=== PATIENT | male | born 1955 | race Caucasian/White ===

== ENCOUNTER 2024-02-06 16:46 | Emergency (ER) | payer OTHER ==
[2024-02-06 17:03] VITALS: PULSE 89; RESP 17; TEMP 97.8; O2SAT 99
[2024-02-06 17:04] VITALS: BP 150/91
--- NOTE | 2024-02-06 17:14 | ERPHSYRPT ---
- History of Present Illness Time Seen by Provider: 02/06/24 17:10 Patient Subjective Stated Complaint: C/O pain to right hand and wrist after a fall at work on Wednesday. Triage Nursing Assessment: Patient ambulated back to ER without difficulties. Right hand is slightly swollen. Did not range due to fear of potentially exacerbating any injuries. No bruising present. No skin alterations present. Physician History: C/O pain to right hand and wrist after a fall at work on Wednesday. Occurred: last week Method of Injury: fell Quality: constant Severity of Pain-Max: mild Severity of Pain-Current: mild Extremities Pain Location: wrist: right Modifying Factors: Improves With: nothing Associated Symptoms: none Allergies/Adverse Reactions: No Known Drug Allergies Allergy (Verified 02/06/24 16:52) Home Medications: cephALEXin [Cephalexin] 1 cap PO BID 02/06/24 [History] Hx Tetanus, Diphtheria Vaccination/Date Given: Yes Hx Influenza Vaccination/Date Given: No Immunizations Up to Date: Yes Travel Risk - International Travel Have you traveled outside of the country in past 3 weeks: No - Emerging Infectious Disease Are you exhibiting symptoms associated with any current EIDs: No - Review of Systems Constitutional: No Symptoms Eyes: No Symptoms Ears, Nose, & Throat: No Symptoms Respiratory: No Symptoms Cardiac: No Symptoms Abdominal/Gastrointestinal: No Symptoms Genitourinary Symptoms: No Symptoms Musculoskeletal: Fall, Joint Pain, Joint Swelling (right wrist) Skin: No Symptoms Neurological: No Symptoms Psychological: No Symptoms - Past Medical History Pertinent Past Medical History: No - Past Surgical History Past Surgical History: Yes Gastrointestinal: Hernia Repair Male Surgical History: Vasectomy - Social History Smoking Status: Never smoker Exposure to second hand smoke: No Drug Use: none - Nursing Vital Signs Nursing Vital Signs: Initial Vital Signs Blood Pressure 151/95 02/06/24 16:50 Pain Scale Pain Intensity 7 - Physical Exam General Appearance: alert Eyes, Ears, Nose, Throat Exam: moist mucous membranes Neck Exam: non-tender, supple Cardiovascular/Respiratory Exam: chest non-tender, normal breath sounds, regular rate/rhythm, no respiratory distress Abdominal Exam: non-tender, No guarding Back Exam: normal inspection, No vertebral tenderness Elbow/Forearm Exam: normal inspection, non-tender Wrist Exam: deformity, limited ROM, soft tissue tenderness Hand Exam: normal inspection Neuro/Tendon Exam: normal sensation, normal motor functions Mental Status Exam: alert, oriented x 3, cooperative Skin Exam: normal color, warm, dry SpO2: 99 Procedures - Splinting Time of Procedure: 17:20 Location of Splint: Right, Wrist Type of Splint: Velcro Splint Splint Applied By: ED Nurse Pre-Proc Neuro Vasc Exam: normal Post-Proc Neuro Vasc Exam: neurovascular intact - Course Nursing assessment & vital signs reviewed: Yes - Radiology Exams Wrist X-ray Interpretation: Interpreted by me (Hairline fracture), Reviewed by me Ordered Tests: Active Orders 24 hr Category Date Time Status HAND (MINIMUM 3 VIEWS) Stat Exams 02/06/24 16:51 Taken WRIST (MIN 3 VIEWS) Stat Exams 02/06/24 16:51 Taken - Progress Progress: improved, pain not gone completely Counseled pt/family regarding: rad results Medical Desision Making - Diagnostic Testing Diagnostic test were ordered, analyzed, and reviewed by me: Yes Radiological Interpretation: Interpreted by me, Reviewed by me - Risk of complications Minimal Risk: Minimal risk of morbidity - Departure Departure Disposition: Home Clinical Impression: Wrist fracture, right Qualifiers: Encounter type: initial encounter Fracture type: closed Qualified Code(s): S62.101A - Fracture of unspecified carpal bone, right wrist, initial encounter for closed fracture Condition: Stable Critical Care Time: No Referrals: DOCTOR,NO FAMILY [Primary Care Provider] - [facility] [id number] Instructions: Wrist Fracture (DC), Common Wrist Injuries ED Additional Instructions: Discharge/Care Plan EFRAIN GONZALEZ was seen on 02/06/24 in the Emergency Room. The patient was counseled regarding Diagnosis,Lab results, Imaging studies, need for follow up and when to return to the Emergency Room. Prescriptions given: Discharge Note I have spoken with the patient and/or caregivers. I have explained the patient's condition, diagnosis and treatment plan based on the information available to me at this time. I have answered the patient's and/or caregiver's questions and addressed any concerns. The patient and/or caregivers have as good understanding of the patient's diagnosis, condition and treatment plan as can be expected at this point. The vital signs have been stable. The patient's condition is stable and appropriate for discharge from the emergency department. The patient will pursue further outpatient evaluation with the primary care physician or other designated or consulting physician as outlined in the discharge instructions. The patient and/or caregivers are agreeable to this plan of care and follow-up instructions have been explained in detail. The patient and/or caregivers have received these instruction. The patient/and or caregivers are aware that any significant change in condition or worsening of symptoms should prompt an immediate return to this or the closest emergency department or call 911. EFRAIN GOZNALEZ was seen on 02/06/24 n the Emergency Room. At that time you were treated for an emergent condition, during your visit Laboratory, Radiology and/or other procedures may have been ordered. It is very important that you follow-up with your Primary Care Physician NO FAMILY DOCTOR within the next 24- 48 hours to review your Emergency Room visit and the final results of testing that was ordered. Some test results such as Urine Cultures, Blood Cultures, and other cultures if ordered will not be finalized for 24-48 hours. If you do not have a Primary Care Provider please call the medical records department at [phone] to obtain a copy of your results or you may sign into our patient portal to obtain these results by visiting us @ [email or web address] and completing the following steps: 1. Click on the Patient Portal link 2. Click the Patient Self Enrollment Link to complete the enrollment form and entering your 3. Once the enrollment form is completed you will receive an email with a temporary ID and password at the email address you provided. 4. Next choose a user name and password. Your user name must be at least 4 characters long and your password must be at least 4 characters long. 5. Choose a security question from the list and provide your answer to the question. If you already have signed into the Health Portal you may access your Health Care Information 24/05 by the following steps: 1. Login to our website @ [email or web address] 2. Enter your original user name and password. FAQS The [facility] Health Portal is an online tool that contains your Lab Results, Radiology Reports, Visit History, Discharge Instructions and Health Summary Lab and Radiology Results will not be available for 72 hours on the portal. The Portal is a secure site, passwords are encryted and URLs are re-written so they cannot be copied and pasted. You and authorized family members are the only ones who can access your Portal. Also there is a timeout feature that protects your information if you leave the Portal page open. If you have technical difficulty please use the Contact Us link on the page this will allow you to submit any questions you have regarding the Portal or you may contact the Medical Record Department at [phone] ext [phone]. Prescriptions: Naproxen 375 mg [Naprosyn 375 mg] 375 mg PO Q8H #30 tablet
--- NOTE | 2024-02-06 19:34 | XRAY ---
Indication: Pain and swelling following fall 2 days ago. Comparison: None 3 view right hand demonstrates osteopenia, minimal/mild degenerative changes all IP/MCP joints, and mild 1st metacarpal multangular degenerative changes. No other bony, articular, or soft tissue abnormalities.
--- NOTE | 2024-02-06 19:36 | XRAY ---
Indication: Pain and swelling following fall 2 days ago. Comparison: None 3 view right wrist demonstrates tiny displaced cortical fracture tip of radius best seen oblique view. Elsewhere osteopenia, widened scapholunate interval concerning for underlying ligamentous tear, and 1st metacarpal multangular degenerative changes.
== END 2024-02-06 17:33 | disposition home or self-care (01) ==
LOC: ED 16:46
DX: S52.501A Unspecified fracture of the lower end of right radius, initial encounter for closed fracture (principal); W01.0XXA Fall on same level from slipping, tripping and stumbling without subsequent striking against object, initial encounter; Y92.64 Mine or pit as the place of occurrence of the external cause; Y99.0 Civilian activity done for income or pay; Z79.899 Other long term (current) drug therapy
CPT/HCPCS: 73110; 73130; 99282; L3908